=== PATIENT | female | born 1950 | race Caucasian/White ===

== ENCOUNTER → 2017-02-10 | Outpatient (CLI) | payer BC ==
[~2017-02-10] MED LIST: AMLO-110 PO
== END | disposition home or self-care (01) ==
LOC: C.RDSM 12:21
PROVIDERS: ATTEND Orthopaedic Surgery Sports Medicine
DX: M79.672 Pain in left foot (principal)

== ENCOUNTER → 2017-02-25 | Outpatient (CLI) | payer BC | END | disposition home or self-care (01) | LOC: C.RDSM 12:58 | PROVIDERS: ATTEND Orthopaedic Surgery Sports Medicine | DX: M79.672 Pain in left foot (principal) ==

== ENCOUNTER 2021-08-20 05:15 | Observation (INO) ==
--- NOTE | 2021-08-02 09:00 | PAT Medication Instructions ---
Medication Instructions Date of Service August 02, 2021 Home Medications amlodipine 5 mg tablet 5 mg PO QAM ibuprofen 200 mg tablet (Advil) 400 mg PO QAM lisinopril 20 mg tablet 20 mg PO QAM ASK your surgeon for instructions ibuprofen 200 mg tablet (Advil) 400 mg PO QAM DO NOT take the morning of surgery lisinopril 20 mg tablet 20 mg PO QAM Take morning of surgery With a small sip of water, OTHERWISE NOTHING TO EAT OR DRINK AFTER MIDNIGHT: amlodipine 5 mg tablet 5 mg PO QAM Other Notes If you have any questions please call us at [phone] or [phone] or [phone] or [phone]
--- NOTE | 2021-08-05 14:34 | Anesthesiology Consultation ---
Date of Service August 05, 2021 Assessment & Plan (1) Encounter for pre-operative examination: Chart Review Chart Review: Acceptable Risk for Surgery (pending PCP clearance (scheduled 08/02/21) and preop Covid testing results ) and Patient seen in Pre Admission Testing - Awaiting PCP clearance (done 08/02/21) Per PAT appt on 08/05/21, patient denies any recent travel or large group activities. No known Covid positive exposures or Covid related symptoms. No known Covid infection in the past 90 days. Pt is vaccinated for Covid. Preop Covid testing scheduled 08/16/21 = will await results. Educated on importance of self quarantining, social distancing and wearing mask in public for the patient one week prior to surgery and after Covid testing done Teaching & Discussion Pre-Anesthesia Teaching/Discussion Notes: Instructed NPO after midnight before surgery,except medications with 15 cc of water. Medication instructions provided according to the PAT guidelines. History Surgery Operation Date: 08/20/21 09:50 Proposed Procedures p Left Total Knee Arthroplasty - Vladimir Celine Vang MD Height/Weight Height: 5 ft 3 in Weight: 83.915 kg Allergies Allergy/AdvReac Type Severity Reaction Status Date / Time No Known Allergies Allergy Verified 08/01/21 12:15 Medications Home Medications Medication Instructions Recorded Confirmed Last Taken amlodipine 5 mg tablet 5 mg PO QAM 08/01/21 08/01/21 Unknown ibuprofen 200 mg tablet (Advil) 400 mg PO QAM 08/01/21 08/01/21 Unknown lisinopril 20 mg tablet 20 mg PO QAM 08/01/21 08/01/21 Unknown Past Medical History Medical History Hypertension Osteoarthritis Exercise / Class Metabolic Activity II 4-5 Yardwork/Stairs/Walk up hill (one flight of stairs - no chest pain or SOB ) Past Family History Family History Father Family history of reaction to anesthesia got sick after lung surgery Past Surgical History Surgical History History of left knee surgery cartilage repair History of repair of left rotator cuff History of tooth extraction History of wisdom tooth extraction Past Anesthesia History No Hx of Anesthesia Complications and No Family Hx of Anesthesia Complications (with exception to father- specifics unknown but denies MH or ps eudocholinesterase deficiency - no personal issues anesthesia ) History of PONV No Hx of PONV and No Hx of Motion Sickness Social History Smoking Status: Never smoker Do You Dip or Chew Tobacco: No Hx Alcohol Use: Yes Alcohol type: wine alcohol intake frequency: 0-2 drinks per day (2 glasses of wine/day ) Hx Substance Use: No substance use type: does not use Review of Systems Hx of snoring- no witnessed apnea- no hx of sleep study Patient denies chest pain, shortness of breath, dyspnea on exertion, reflux, cough, wheezing, palpitations. No hx of seizures, stroke, MA. No hx of blood clots or blood transfusions Physical Exam Vital Signs VITALS BP 132/75 P 75 TEMP 98.0 SP02 95% RESP 16 Constitutional no acute distress ENMT Mouth: + small oral opening; no TMJ clicking Thyromental Distance: < 3.5 Finger Breadths (3.0) Mallampati Class: III Crowns to molars Permanent implants to side teeth Neck + limited neck extension (mild ) Respiratory normal respiratory effort; no respiratory distress Auscultation: lungs clear to auscultation bilaterally; no wheezes Cardiovascular Rate/Rhythm: regular rate and regular rhythm Heart Sounds: no murmur Vessels: no carotid bruit Musculoskeletal Spine: no pain with cervical ROM Extremities: extremities normal to inspection Psychiatric Orientation: alert Lab Results Anesthesia Preop Results Results Anesthesia Widget: WBC 5.73 K/uL (4.8-10.8) 08/05/21 Hgb 14.2 g/dL (12.0-16.0) 08/05/21 Hct 42.3 % (37-47) 08/05/21 Plt 259 K/uL (130-400) 08/05/21 Na 139 mmol/L (136-145) 08/05/21 K 4.6 mmol/L (3.5-5.1) 08/05/21 Cl 104 mmol/L (98-107) 08/05/21 CO2 29 mmol/L (21-32) 08/05/21 BUN 22 mg/dl (6-23) 08/05/21 Creat 0.74 mg/dl (0.6-1.2) 08/05/21 Glucose Level 94 mg/dl (70-99(Fasting)) 08/05/21 PT 10.0 Seconds (9.0-12.0) 08/05/21 PTT 25.2 Seconds (21.0-31.0) 08/05/21 INR 0.9 (0.9-1.1) 08/05/21 Urine Color Yellow 08/05/21 Urine Appearance Clear (Clear) 08/05/21 Urine pH 6.0 (4.5-7.5) 08/05/21 Urine Specific Apex 1.019 (1.000-1.030) 08/05/21 Urine Protein Negative (Negative) 08/05/21 Urine Glucose (UA) Negative (Negative) 08/05/21 Urine Ketones Negative (Negative) 08/05/21 Urine Blood Negative (Negative) 08/05/21 Urine Nitrite Negative (Negative) 08/05/21 Urine Bilirubin Negative (Negative) 08/05/21 Urine Urobilinogen Negative (Negative) 08/05/21 Urine Leukocyte Esterase Negative (Negative) 08/05/21 Blood Type B Positive 08/05/21 Antibody Screen NEGATIVE 08/05/21 Testing Electrocardiogram Date: 08/05/21 Findings: + NSR @ (78bpm ) Normal EKG per cardio Chest X-Ray Date: 08/05/21 Findings: + NAD and + cardiomegaly (mild)
[2021-08-20] MEDS ORDERED: GABAPENTIN 300 MG CAP PO SCH (06:00)
[2021-08-20] MEDS ORDERED: LR 500ML BOLUS, THEN 15ML/HR IV SCH (06:00)
[2021-08-20] MEDS ORDERED: oxyCODONE HCL 10 MG TABCR (OxyCONTIN) PO SCH (06:00)
[2021-08-20] MEDS ORDERED: LR 60ML/HR IV SCH (06:00)
[2021-08-20] MEDS ORDERED: TRANEXAMIC ACID 1,000 MG **IV Pre-op IV SCH (06:00)
[2021-08-20] MEDS ORDERED: Scopolamine 1 MG TDSY TD SCH (06:00)
[2021-08-20] MEDS ORDERED: TRANEXAMIC ACID 1,000 MG **IV Intra-op IV SCH (06:00)
[2021-08-20] MEDS ORDERED: ROPIVACAINE 0.5% HCL/PF 150 MG, BUPIVACAINE 0.75% MPF 20 ML, EPINEPHrine 0.15 MG, Ketor... INFIL SCH (06:00)
[2021-08-20] MEDS ORDERED: ceFAZolin 2000MG 2,000 MG/15 ML SYR IV SCH (06:00)
[2021-08-20] MEDS ORDERED: ACETAMINOPHEN 500 MG TAB PO SCH (06:00)
[2021-08-20] MEDS ORDERED: ROPIVACAINE 0.5% 5 MG/ML 30 ML VIAL ONE (06:25)
[2021-08-20] MEDS ORDERED: EPINEPHrine INJ 1 MG/ML AMP ONE (06:25)
[2021-08-20] MEDS ORDERED: BUPIVACAINE 0.5 % 5 MG/1 ML PF 10ML VIAL ONE (06:25)
[2021-08-20] MEDS ORDERED: PROPOFOL IV EMULSION 10 MG/ML 20 ML VIAL IV ONE ×4 (06:36→09:35)
--- NOTE | 2021-08-20 06:37 | History & Physical Bridge Note ---
Date of Service August 20, 2021 History & Physical Bridge Note I have examined the patient, reviewed the History & Physical and in the interval since the performance of the History & Physical I have noted the following changes of clinical significance: no changes noted Patient is aware of the risks, is asymptomatic and tested negative for COVID-19.
[2021-08-20] MEDS ORDERED: fentaNYL citrate 100 MCG/2 ML VIAL ONE ×2 (06:39→09:21)
[2021-08-20] MEDS ORDERED: MIDAZOLAM HCL 1 MG/ML 2ML VIAL ONE (06:39)
[2021-08-20] MEDS ORDERED: ORTHO JOINT ANESTHETIC ONE (06:44)
[2021-08-20] MEDS ORDERED: PHENYLEPHRINE HCL 10 MG/ML VIAL ONE (07:44)
[2021-08-20] MEDS ORDERED: LIDOCAINE 2% 2 ML VIAL/AMP(20MG/ML) INFIL ONE (07:44)
[2021-08-20] MEDS ORDERED: ESMOLOL HCL INJ 10 MG/ML 10ML VIAL IV ONE (08:56)
[2021-08-20] MEDS ORDERED: KETAMINE 50 MG/5 ML SYRINGE ONE (09:00)
[2021-08-20] MEDS ORDERED: ATROPINE SULFATE 0.1 MG/ML 10ML SYR IV PRN (09:09)
[2021-08-20] MEDS ORDERED: ePHEDrine sulfate 50 MG/ML AMP IV PRN (09:09)
--- NOTE | 2021-08-20 10:04 | Post Operative Brief Note ---
Immediate Post Op Note v1 Date of Surgery August 20, 2021 Pre & Post Diagnosis Operation Date: 08/20/21 07:00 Pre-Op Diagnosis: Unilateral Osteoarthritis Left Knee Post-Op Diagnosis: Unilateral Osteoarthritis Left Knee I identified the patient and participated in the time-out.: Yes Procedure Operation Date: 08/20/21 07:00 Actual Procedures p Left Total Knee Arthroplasty(Left) - Vladimir Vang MD Surgeon Vladimir Vang MD Dandy Tender M KATERYNA ValenzuelaC (No fellow avail) Estimated Blood Loss 100 Findings Consistent with Post-Op Diagnosis Fluids 1600 cc Specimens Left knee contents Anesthesia Type MAC Spinal Regional Complications none
--- NOTE | 2021-08-20 10:04 | Operative Report ---
Post Operative Report Pre & Post Diagnosis Operation Date: 08/20/21 07:00 Pre-Op Diagnosis: Osteoarthritis Left Knee Post-Op Diagnosis: Osteoarthritis Left Knee I identified the patient and participated in the time-out.: Yes Procedure Operation Date: 08/20/21 07:00 Actual Procedures p Left Total Knee Arthroplasty, computer assisted(Left) - Vladimir Vang MD Surgeon Vladimir Vang MD Insecticide Mixer Dontae Valenzuela PA-C (No fellow avail) Estimated Blood Loss 100 Findings See Below Examined Under Anesthesia: ROM -- There was 10 degrees to 100 degrees of flexion Ligamentous examination -- revealed stable Justin, posterior drawer with 1-2 mm posterior translation, varus and valgus stress at 10 and 30 degrees. Outerbridge Type IV changes of Tri-compartments. Multiple large loose bodies. Marginal and intercondylar osteophytes. Large posterior Romero's cyst decompressed. Fluids 1600 cc Specimens left knee contents Anesthesia Type MAC Spinal Regional Complications none Indications This is a 70-year-old female who has clinical and radiographic findings consistent with osteoarthritis of the a left knee. I recommended that a left total knee replacement be performed. The patient understands the risks of surgery, which include but not limited to: bleeding, infection, re-operation, damage to nerves and arteries, continued knee pain, knee stiffness, DVT, and . The patient understands all of these instructions and explanations, all of his questions have been satisfactorily addressed and the patient has elected to proceed. Informed consent was signed. Description of Procedure IMPLANTS: 1. Femur: Triathlon #3 Left PS, with distal femoral pegs. 2. Tibia: Triathlon #4 Waller. 3. Insert: Triathlon #4 x 13 mm PS X3 poly. 4. Patella: Triathlon A35 x 10 mm X3 poly. 5. Simplex cement. Dontae Valenzuela PA-C is assisting with positioning, retracting, and closure due to fellow not available. Procedure: The patient was taken to the Operating Room and placed in the supine position after spinal and adductor canal nerve block was administered. My initials and a multidisciplinary time-out were used to identify the left leg as the correct operative limb. A tourniquet was placed high in the thigh. Prior to the incision, 2 grams of intravenous Ancef were given. The left leg was then prepped and draped in a standard sterile fashion. An Esmarch was used to exsanguinate the leg and the tourniquet was inflated to 250 mmHg. The planned mid-line 20 cm incision was created exposing the extensor mechanism. The medial parapatellar arthrotomy was made and the patella was everted. The patella was addressed first. It was prepared by reaming from 24 mm down to 14 mm. An A35 button was found to fit best. The peg holes were made in the standard fashion. The femur was addressed next and using computer assisted OrthoAlign with 3 degrees of flexion and 0 degrees of valgus, removing 10 mm in the standard fashion for the distal cut.The cut was made and the 4-in-1 cutting block for a size 3 femur was placed. These cuts and the cuts to place the box were made in the standard fashion. The distal peg were created after testing knee stability with trial components in and using the trial femur as a guide in the standard fashion. Our attention was then drawn to the tibia cut with again using computer assisted OrthoAlign, taking 9 mm from the lateral high side. There was sufficient extension and flexion gap to fit a 13 mm spacer. A #4 Tibial baseplate fit well. A trial with a 13 mm spacer showed excellent stability in both flexion and extension, with good ligament balance, and thumbs free patellar tracking. Range of motion of 0-120 degrees. The tibial baseplate was prepped for the keel and stem. All the trial components were tested again, with good stability and thumbs free tracking of the patella. All components were removed. The tourniquet was deflated. Hemostasis was obtained. 90 ml of total knee cocktail were injected into the soft tissues and periosteum. A bone plug was placed in the femur and covered with bone wax. After a 17 minute break, the limb was exsanguinated again and the tourniquet was re-inflated. All surfaces were copiously irrigated prior to placement of the components. The femoral component followed by Tibial baseplate were cemented in place and a 13mm trial placed. Next, the patellar button was placed using the same Simplex cement. Once the cement had cured, the range of motion and stability were unchanged. The 13 mm X3 poly was placed. Again the range of motion and stability were unchanged The extensor mechanism was closed with 1-0 and 0 Vicryl with the knee bent approximately 60 degrees in a standard fashion. The peritenon and deep fascia was closed with 2-0 Vicryl. The subcutaneous layer was closed with 3-0 Vicryl. The skin was closed with Zipline and shield. The limb was cleaned and dried. 4x4 dressing was placed over top followed by ABDs, sterile Webril, and a foot to thigh Syed bandage. The patient was then transferred to the Recovery Room in stable condition. The sponge and needle counts were correct. POST-OP INSTRUCTIONS: The patient will be WBAT. The patient will be admitted to the hospital. Labs will be obtained during the stay. DVT prophylaxis will included aspirin for 6 weeks, TEDs, and mechanical foot pumps. The dressing will be changed prior to their discharge or postop day #2 and covered with a Silverlon dressing, whichever comes first. I attest to the content of the Intraoperative Record and any orders documented therein. Any exceptions are noted below.
--- NOTE | 2021-08-20 10:16 | Operative Report ---
Post Operative Report Pre & Post Diagnosis Operation Date: 08/20/21 07:00 Pre-Op Diagnosis: Unilateral Osteoarthritis Left Knee Post-Op Diagnosis: Unilateral Osteoarthritis Left Knee I identified the patient and participated in the time-out.: Yes Procedure Operation Date: 08/20/21 07:00 Actual Procedures p Left Total Knee Arthroplasty(Left) - Vladimir Vang MD Surgeon Isadora Valenzuela PA-C College Sc[employer] Coordinator Dontae Valenzuela PA-C (No fellow avail) Estimated Blood Loss 100 Findings Consistent with Post-Op Diagnosis Specimens synovium left knee Description of Procedure Pt was taken to operating room, placed under general anesthesia with peripheral nerve block. Pt was given 2g Ancef IV. Prepped and draped in sterile fashion. I was present during the entire case and assisted with positioning, instrumentation, closure and dressings. Please see Dr. Vang's op report for further detail. Pt was awake and transferred to PACU in stable condition I attest to the content of the Intraoperative Record and any orders documented therein. Any exceptions are noted below.
[2021-08-20] MEDS ORDERED: HYDROmorphone INJ 0.5 MG/0.5 ML SYR IV PRN ×2 (10:17→10:28)
[2021-08-20] MEDS ORDERED: METOCLOPRAMIDE HCL INJ 5 MG/ML 2 ML VIAL IV PRN (10:17)
[2021-08-20] MEDS ORDERED: MAGNESIUM HYDROXIDE SUSP 30 ML UDC PO PRN (10:17)
[2021-08-20] MEDS ORDERED: NALOXONE HCL 0.4 MG/1 ML VIAL/CARP IV PRN (10:17)
[2021-08-20] MEDS ORDERED: bisacodyL 10 MG SUPP PR PRN (10:17)
[2021-08-20] MEDS ORDERED: ONDANSETRON INJ 2 MG/ML 2 ML VIAL IV PRN (10:17)
[2021-08-20] MEDS ORDERED: HYDROmorphone INJ 1 MG/ML SYRINGE ONE (10:33)
--- NOTE | 2021-08-20 11:44 | Anesthesiology Progress Note ---
Date of Service August 20, 2021 Anesthesia Post Procedure Vital Signs Vital Signs: Temp Pulse Pulse Resp BP Pulse Ox 08/20/21 11:25 36.9 C 72 14 100/59 L 96 08/20/21 11:15 36.9 C 78 15 109/75 92 08/20/21 11:05 36.9 C 96 H 14 119/73 95 08/20/21 10:55 96 H 16 105/75 95 08/20/21 10:45 97 H 19 105/74 92 08/20/21 10:35 101 H 16 121/77 95 08/20/21 10:25 95 H 19 107/71 95 08/20/21 10:16 36.1 C L 97 H 12 123/85 91 08/20/21 05:38 36.9 C 83 20 126/67 94 Pain Intensity Left Knee: Pain Intensity: 3 Transfer of Care Handoff Completed per policy Notes Mental Status: alert / awake / arousable Patient Amnestic to Procedure: Yes Nausea / Vomiting: adequately controlled Pain: adequately controlled Airway Patency, RR, SpO2: stable & adequate BP & HR: stable & adequate Hydration State: stable & adequate Neuraxial Anesthesia: was administered and sensory block is resolving Anesthetic Complications: no major complications apparent
--- NOTE | 2021-08-20 11:49 | XRay Report ---
XR knee LT 1 or 2V routine CLINICAL HISTORY: Surgical Post Op. Status post total knee replacement COMPARISON STUDY: 08/05/2021 TECHNIQUE: 2 left knee views FINDINGS: The patient is status post total knee replacement. The prosthetic components are in anatomi c alignment with no acute abnormality seen. Air is present within the soft tissues from the procedure . IMPRESSION: 1. Status post total knee replacement. ACT 112: Negative or not required by law. Electronically signed by: Reji Curiel M.D. 08/20/2021 11:48 AM
--- NOTE | 2021-08-20 12:10 | Hospitalist Consultation ---
Date of Consultation August 20, 2021 Assessment & Plan (1) S/P total knee arthroplasty: - POD #0. EBL 100cc. No complaints. - Defer pain management/DVT ppx/antibiotics/IVF/bowel regimen to primary team. - Patient has rescue Narcan ordered prn. - CBC and BMP in AM. (2) Hypertension: - Medications include amlodipine and lisinopril. Recommend restarting these tomorrow AM pending adequate renal function on AM BMP. - BP currently low-normotensive, no indication for prn antihypertensives. (3) Hyperlipidemia: - Per PCP records, no current medications prescribed for this. Supervising Physician Co-Signing Physician Notes Attending Attestation & Consult Note: Pt seen/examined, chart reviewed, care plan d/w HIRO Foster. I agree w/ the biggs components of her consult note. Pleasant 70yo female with HTN & Hyperlipidemia who presented today for elective L TKR. I saw her post-op on the orthopedic floor. c/o left knee pain, but denied chest pain, dyspnea or nausea/emesis. PMH/PSH/allergies/meds/sochx/famhx - reviewed VSS, afebrile gen - NAD, pleasant mouth - MMM neck - no JVD heart - RRR, s1 s2 lungs - CTA b/l abd - mildly distended, BS+, NT ext - left knee wrapped in dressings, mild edema left ankle; no edema right ankle; pulses 2 + b/l A/P: 1. s/p left TKR - pain control, fluids, dispo - per ortho 2. HTN - hold RENAY; cont amlodipine; f/u on labs in am 3. mild abdominal distension - serial exams; watch carefully for ileus; bowel regimen Reid Velez MD History of Present Illness Reason for Consultation: post-op medication management Requesting Physician: Vladimir Vang MD Attending Physician: Vladimir Vang MD History of Present Illness Rosibel Wood is a 70-year-old female with a past medical history of hypertension and hyperlipidemia who was admitted today for left TKA with Dr. Vang today, 08/20, after failing conservative treatment for her osteoarthritis. The hospitalist service was consulted for medication management. Today she is POD#0 doing well. Denies fever/chills, chest pain, palpitations, SOB, cough, abdominal pain, n/v, numbness/tingling, weakness, or pain. Allergies Allergy/AdvReac Type Severity Reaction Status Date / Time No Known Allergies Allergy Verified 08/20/21 05:37 Home Medications Medication Instructions Recorded Confirmed Type amlodipine 5 mg tablet 5 mg PO QAM 08/01/21 08/20/21 History ibuprofen 200 mg tablet (Advil) 400 mg PO QAM 08/01/21 08/20/21 History lisinopril 20 mg tablet 20 mg PO QAM 08/01/21 08/20/21 History Patient History Medical History (Updated 08/20/21 @ 16:49 by Vladimir Vang MD) Hyperlipidemia Per PCP records Hypertension Osteoarthritis Surgical History (Updated 08/20/21 @ 12:08 by Whit Foster PA-C) History of left knee surgery cartilage repair History of repair of left rotator cuff History of tooth extraction History of wisdom tooth extraction Family History Father Family history of reaction to anesthesia got sick after lung surgery Social History Smoking Status: Never smoker Second Hand Exposure: No; Do You Dip or Chew Tobacco: No; Tobacco Cessation Education Requested by Patient: No Hx Alcohol Use: Yes Alcohol type: wine Hx Substance Use: No Preferred Language: Italian Communication Ability: Effective Hydrator Operator Required: No Beliefs That Will Affect Care: None marital status: Single Current Living Situation: Alone Other Information That Helps Us Care for You: No Feels Safe at Home: Yes Safety Concerns: Feels Safe At This Time Assistive Devices: Walker Review of Systems Review of Systems: Constitutional: No fever/chills, weakness, fatigue, myalgias, anorexia, night sweats Eyes: No diplopia, no worsening or blurred vision ENT: normal hearing, no trouble swallowing Respiratory: No cough, sputum, dyspnea at rest or on exertion Cardiovascular: No chest pain, tightness or palpitations Abdomen: No pain, nausea, vomiting, diarrhea or constipation : Denies dysuria, hematuria, increased urgency/frequency, urinary retention Musculoskeletal: No joint pain, calf pain, swelling Neurologic: No weakness, numbness/tingling, or balance problems Psychiatric: No anxiety or depression Skin: No rash or itch Physical Exam Physical Exam: General: awake, alert, no apparent distress Head: Normocephalic, atraumatic ENT: PERRL, EOMI, no pharyngeal exudate, mucous membranes moist Chest: Clear to auscultation, on room air, no adventitious breath sounds Cardiac: Regular rate and rhythm, no murmur, no JVD, normal peripheral pulses, good capillary refill Abdominal: NABS x 4 quadrants, soft, nontender to palpation, no rebound, guarding or tenderness Extremities: Normal inspection, no peripheral edema or erythema, calfs nontender to palpation Psych: Normal mood and affect Neuro: AAO x 3, strength intact bilaterally and rated 5/5, no motor deficits, speech is clear, no peripheral sensory deficits Skin: no rash or erythema Results & Data Results & Data ([facility]) Vital Signs (Past 12 Hours) Vital Signs Temp Pulse Pulse Resp BP Pulse Ox 08/20/21 11:54 36.7 C 74 16 109/68 94 08/20/21 11:25 36.9 C 72 14 100/59 L 96 08/20/21 11:15 36.9 C 78 15 109/75 92 08/20/21 11:05 36.9 C 96 H 14 119/73 95 08/20/21 10:55 96 H 16 105/75 95 08/20/21 10:45 97 H 19 105/74 92 08/20/21 10:35 101 H 16 121/77 95 08/20/21 10:25 95 H 19 107/71 95 08/20/21 10:16 36.1 C L 97 H 12 123/85 91 08/20/21 05:38 36.9 C 83 20 126/67 94 Diagnostic Findings Knee X-Ray 08/20/21 10:24 XR knee LT 1 or 2V routine CLINICAL HISTORY: Surgical Post Op. Status post total knee replacement COMPARISON STUDY: 08/05/2021 TECHNIQUE: 2 left knee views FINDINGS: The patient is status post total knee replacement. The prosthetic components are in anatomic alignment with no acute abnormality seen. Air is present within the soft tissues from the procedure. IMPRESSION: 1. Status post total knee replacement. ACT 112: Negative or not required by law. Electronically signed by: Reji Curiel M.D. 08/20/2021 11:48 AM PG Care Time/CCT Total # of Minutes Spent Total Time Spent with Patient: Total time spent is greater than 50% in coordination of care (as documented) at patient's floor/unit and/or counseling patient: Coding Level of Care Code 16721 Inpt Consult Level 2 Diagnoses S/P total knee arthroplasty Z96.659 Hypertension I10 Hyperlipidemia E78.5
[2021-08-20] MEDS: SODIUM CHLORIDE 0.9% 1000ML 1,000 ML IV SCH ×2 (12:28→22:04)
[2021-08-20] MEDS: Scopolamine CHECK PATCH PLACEMENT SCH (14:58)
--- NOTE | 2021-08-20 16:50 | Orthopedic Progress Note ---
Date of Service August 20, 2021 Assessment & Plan (1) Osteoarthritis of left knee: Plan: POD #0 s/p L TKA, doing as well as expected. Resume diet. WBAT with walker. OOB to chair. Continue pain control. Check labs tomorrow. DVT prophylaxis: TEDs 3 weeks, foot pumps while in hospital, ASA 81 mg BID for 6 weeks. PT/OT. D/C planning. Present on Admission?: Yes Admission and Anticipated Discharge Date Admission Date: August 20, 2021 Subjective Doing fine, taking a nap. Review of Systems Review of Systems: All systems reviewed & are unremarkable except as noted in HPI & below Physical Exam Physical Exam: LLE: Dressing clean, dry, intact. Wiggling toes. Able to preform straight leg raise. Calf soft and non-tender. Results & Data ([facility]) Vital Signs (Past 12 Hours) Vital Signs Temp Pulse Pulse Resp BP Pulse Ox 08/20/21 14:50 36.9 C 70 121/69 94 08/20/21 14:00 36.6 C 60 15 134/85 97 08/20/21 12:50 37.0 C 84 16 125/54 L 93 08/20/21 12:20 36.6 C 72 16 127/69 93 08/20/21 11:54 36.7 C 74 16 109/68 94 08/20/21 11:25 36.9 C 72 14 100/59 L 96 08/20/21 11:15 36.9 C 78 15 109/75 92 08/20/21 11:05 36.9 C 96 H 14 119/73 95 08/20/21 10:55 96 H 16 105/75 95 08/20/21 10:45 97 H 19 105/74 92 08/20/21 10:35 101 H 16 121/77 95 08/20/21 10:25 95 H 19 107/71 95 08/20/21 10:16 36.1 C L 97 H 12 123/85 91 08/20/21 05:38 36.9 C 83 20 126/67 94 Diagnostic Findings Laboratory Results SARS-CoV-2, RNA, NAAT NEGATIVE (NEGATIVE) 08/20/21 05:29 Impressions Knee X-Ray 08/20/21 10:24 XR knee LT 1 or 2V routine CLINICAL HISTORY: Surgical Post Op. Status post total knee replacement COMPARISON STUDY: 08/05/2021 TECHNIQUE: 2 left knee views FINDINGS: The patient is status post total knee replacement. The prosthetic components are in anatomic alignment with no acute abnormality seen. Air is present within the soft tissues from the procedure. IMPRESSION: 1. Status post total knee replacement. ACT 112: Negative or not required by law. Electronically signed by: Reji Curiel M.D. 08/20/2021 11:48 AM
[2021-08-20] MEDS: FERROUS GLUCONATE 324 MG TAB PO SCH (17:40)
[2021-08-20] MEDS: ASCORBIC ACID 500 MG TAB PO SCH (17:40)
[2021-08-20] MEDS: HYDROmorphone INJ 1 MG/ML SYRINGE IV PRN (17:44)
[2021-08-20] MEDS: ceFAZolin 2000MG 2,000 MG/15 ML SYR IV SCH (17:55)
[2021-08-20] MEDS: SENNA 8.6 MG TAB PO SCH (20:40)
[2021-08-20] MEDS: DOCUSATE SODIUM 100 MG CAP PO SCH (20:40)
[2021-08-20] MEDS: oxyCODONE HCL IR 5 MG TAB (IMMEDIATE RELEASE) PO PRN (20:41)
[2021-08-21] MEDS: ceFAZolin 2000MG 2,000 MG/15 ML SYR IV SCH (00:52)
[2021-08-21] MEDS: Scopolamine CHECK PATCH PLACEMENT SCH ×2 (00:52→08:42)
[2021-08-21] MEDS: oxyCODONE HCL IR 5 MG TAB (IMMEDIATE RELEASE) PO PRN ×5 (03:30→20:50)
[2021-08-21 06:34] LABS: Hematocrit (blood only) 37.5 % (37-47); Hemoglobin 12.4 g/dL (12.0-16.0); Mean Corpuscular Hemoglobin 31.6 pg (25-34); Mean Corpuscular Hgb Conc 33.1 g/dL (32-36); Mean Corpuscular Volume 95.7 fL (80-100); Platelet Count 206 K/uL (130-400); RDW Coefficient of Variation 12.5 % (11.5-14.5); RDW Standard Deviation 43.1 fL (36.4-46.3); Red Blood Count 3.92 M/uL (4.2-5.4); White Blood Count 7.55 K/uL (4.8-10.8)
[2021-08-21 06:51] LABS: BUN Creatinine Ratio 19.3 (10-20); Calcium 8.7 mg/dl (8.5-10.1); Creatinine Clr Calc Pharmacy 63.8 ml/min; Est GFR (African American) 82.2 ml/min; Est GFR (Non-African American) 70.9 ml/min; Potassium 4.8 mmol/L (3.5-5.1)
[2021-08-21] MEDS: ASCORBIC ACID 500 MG TAB PO SCH ×2 (07:25→17:31)
[2021-08-21] MEDS: FERROUS GLUCONATE 324 MG TAB PO SCH ×2 (07:25→17:31)
[2021-08-21] MEDS: MULTIVITAMIN TAB PO SCH (07:26)
[2021-08-21] MEDS: lisinopril 20 MG TAB PO SCH (07:26)
[2021-08-21] MEDS: amLODIPine BESYLATE 5 MG TAB PO SCH (07:26)
[2021-08-21] MEDS: DOCUSATE SODIUM 100 MG CAP PO SCH ×2 (07:27→20:48)
[2021-08-21] MEDS: HYDROmorphone INJ 1 MG/ML SYRINGE IV PRN (09:28)
--- NOTE | 2021-08-21 09:46 | Orthopedic Progress Note ---
Date of Service August 21, 2021 Assessment & Plan (1) S/P total knee arthroplasty: Plan: POD1 s/p total knee arthroplasty WBAT with walker PT/OT Diet - regular Frequently ice and elevate with blankets stacked under ankle DVT prophylaxis: ASA 81mg BID x 6 weeks, TEDS x 3 weeks, foot pumps while in hospital Pain control: Tylenol 1000mg q 8hrs, oxycodone 5-10mg q4-6 hrs for moderate pain, Dilaudid 0.5mg IV for severe/breakthrough pain Vitamin C and Iron supplementation BID x 2 weeks Dressing: will change dressing tomorrow to Mepilex dressing that patient can leave in-tact until f/u Discharge home with home health x 2 weeks Follow up as scheduled with [facility] in 2 weeks Discharge likely tomorrow I, Dr. Vang, saw and examined the patient and discussed the management with my PA. I reviewed my PAs note and agree with the documented findings and the plan of care I developed. Patient still requiring IV pain medicine to control pain. Admission and Anticipated Discharge Date Admission Date: August 20, 2021 Subjective Pt was seen and examined bedside. POD #1 s/p total knee arthroplasty. Pt was admitted last night for observation. No major events over night. Vitals are stable. Labs unremarkable. X-rays show normal post operative changed. Pt reports they are doing well and pain is controlled. They are tolerating PO intake and voiding adequate amounts. Working well with PT/OT. Pt denies F/C, N/V/D, SOB, CP. Pt reports 9/10 pain. Physical Exam Physical Exam: General: Pt laying in hospital bed AA&O, in NAD, calm and cooperative during exam Lower Extremity: Dressing in tact and not saturated. Pt has full ROM of ankle and all 5 digits. Pt has 5/5 strength with resisted DF/PF. SLR in tact. Calf supple and non tender. NVI with sensation to light touch distally and good distal pulses present. Lower extremity noted to have good color and temperature with no signs of vascular or lymphatic insufficiency. Will change dressing after lunchtime Results & Data ([facility]) Vital Signs (Past 12 Hours) Vital Signs Temp Pulse Resp BP Pulse Ox 08/21/21 07:22 36.6 C 76 15 134/73 91 08/21/21 03:27 36.5 C 72 18 126/73 92 08/20/21 22:28 36.9 C 70 18 103/62 91 Laboratory Results 08/21/21 08/21/21 08/21/21 Range/Units 06:18 06:18 06:18 WBC 7.55 (4.8-10.8) K/uL RBC 3.92 L (4.2-5.4) M/uL Hgb 12.4 (12.0-16.0) g/dL Hct 37.5 (37-47) % MCV 95.7 (80-100) fL MCH 31.6 (25-34) pg MCHC 33.1 (32-36) g/dL RDW Std Deviation 43.1 (36.4-46.3) fL RDW Coeff of Celina 12.5 (11.5-14.5) % Plt Count 206 (130-400) K/uL MPV 9.0 (7.4-10.4) fL Sodium 135 L (136-145) mmol/L Potassium 4.8 (3.5-5.1) mmol/L Chloride 102 (98-107) mmol/L Carbon Dioxide 29 (21-32) mmol/L Anion Gap 4 (3-11) BUN 16 (6-23) mg/dl Creatinine 0.83 (0.6-1.2) mg/dl Est Cr Clr Drug Dosing 63.8 ml/min Est GFR ( Amer) 82.2 ml/min Est GFR (Non-Af Amer) 70.9 ml/min BUN/Creatinine Ratio 19.3 (10-20) Glucose 119 H (70-99(Fasting)) mg/dl Calcium 8.7 (8.5-10.1) mg/dl Hepatitis C Ab (EIA) Pending Hep C Ab Signal/Cutoff Pending
[2021-08-21] MEDS ORDERED: Nursing to Pharmacy Communication SCH (11:45)
--- NOTE | 2021-08-21 11:58 | Hospitalist Progress Note ---
Date of Service August 21, 2021 Assessment & Plan (1) S/P total knee arthroplasty: Plan: - Status post left total knee arthroplasty 08/20/21 - Defer pain management/DVT ppx/antibiotics/IVF/bowel regimen to primary team. Increased pain working with PT, but otherwise doing well. -Hemoglobin normal Creatinine normal (2) Hypertension: Plan: - Creatinine normal May continue amlodipine and lisinopril, hold for hypotension or creatinine elevation Aspirin DVT prophylaxis per primary team, 81 mg twice daily x6 weeks (3) Hyperlipidemia: Plan: - Per PCP records, no current medications prescribed for this. Outpatient follow-up Plan: Hemodynamically and clinically stable, doing well working with PT. Hemoglobin normal, creatinine remains at baseline. Adequate intake and output at this time. Continue pain control and DVT prophylaxis as noted above, and continue antihypertensives as noted above. May check BMP q. OD while inpatient, no additional recommendations at this time. Medicine will sign off, these reconsult if any questions, concerns, or clinical change. Okay for discharge from a medical standpoint. Admission and Anticipated Discharge Date Admission Date: August 20, 2021 Subjective Working with PT at time of visit. No overnight events, patient feels they are doing okay with no acute concerns. Does have increased pain working with PT, otherwise doing well denies lightheadedness/dizziness/syncope/chest pain/chest pressure/shortness of breath. Feels pain control is adequate on current regimen. Review of Systems Review of Systems: All systems reviewed & are unremarkable except as noted in Subjective Physical Exam Physical Exam: General: And oriented, cooperative, working with PT HEENT: Atraumatic, normocephalic. Vision and hearing grossly intact. Pulm: Symmetrical chest rise. No increase in work of breathing. No respiratory distress. Cardiac: Radial pulses intact and symmetrical. Abdominal: Nontender, nondistended, soft. BS present. Extremities: Walking with PT. No lower extremity edema. Postop dressing intact at left knee. Results & Data Results & Data ([facility]) Vital Signs (Past 12 Hours) Vital Signs Temp Pulse Pulse Resp BP Pulse Ox 08/21/21 11:39 36.7 C 72 20 110/64 93 08/21/21 07:22 36.6 C 76 15 134/73 91 08/21/21 03:27 36.5 C 72 18 126/73 92 PG Care Time/CCT Total # of Minutes Spent Total Time Spent with Patient: Total time spent is greater than 50% in coordination of care (as documented) at patient's floor/unit and/or counseling patient: Coding Level of Care Code 63104 Subseq Hosp Care Lvl 1 Diagnoses S/P total knee arthroplasty Z96.659 Hypertension I10 Hyperlipidemia E78.5
[2021-08-21] MEDS: ACETAMINOPHEN 500 MG TAB PO SCH ×2 (14:01→20:48)
[2021-08-21] MEDS: ASPIRIN 81 MG ECTAB PO SCH (20:47)
[2021-08-21] MEDS: SENNA 8.6 MG TAB PO SCH (20:48)
[2021-08-22] MEDS: oxyCODONE HCL IR 5 MG TAB (IMMEDIATE RELEASE) PO PRN ×2 (02:51→08:29)
[2021-08-22] MEDS: ACETAMINOPHEN 500 MG TAB PO SCH (05:49)
[2021-08-22] MEDS: DOCUSATE SODIUM 100 MG CAP PO SCH (08:22)
[2021-08-22] MEDS: ASPIRIN 81 MG ECTAB PO SCH (08:22)
[2021-08-22] MEDS: MULTIVITAMIN TAB PO SCH (08:23)
[2021-08-22] MEDS: ASCORBIC ACID 500 MG TAB PO SCH (08:23)
[2021-08-22] MEDS: amLODIPine BESYLATE 5 MG TAB PO SCH (08:24)
[2021-08-22] MEDS: lisinopril 20 MG TAB PO SCH (09:16)
[2021-08-22] MEDS: FERROUS GLUCONATE 324 MG TAB PO SCH (09:52)
--- NOTE | 2021-08-22 10:40 | Orthopedic Progress Note ---
Date of Service August 22, 2021 Assessment & Plan (1) S/P total knee arthroplasty: Plan: POD 2 s/p total knee arthroplasty WBAT with walker PT/OT Diet - regular Frequently ice and elevate with blankets stacked under ankle DVT prophylaxis: ASA 81mg BID x 6 weeks, TEDS x 3 weeks, foot pumps while in hospital Pain control: Tylenol 1000mg q 8hrs, oxycodone 5-10mg q4-6 hrs for moderate pain, Dilaudid 0.5mg IV for severe/breakthrough pain Vitamin C and Iron supplementation BID x 2 weeks Dressing: Silverlon dressing was applied today. Patient was advised to keep in place until her follow-up Discharge home with home health x 2 weeks Follow up as scheduled with [facility] in 2 weeks Discharge Later today I, Dr. Vang, saw and examined the patient and discussed the management with my PA. I reviewed my PAs note and agree with the documented findings and the plan of care I developed. Patient still requiring IV pain medicine to control pain. Admission and Anticipated Discharge Date Admission Date: August 20, 2021 Subjective This 70-year-old female is day 2 status post left total knee arthroplasty. Patient states she is doing very well. She is very anxious to be discharged from the hospital today. She states that her pain is well controlled with p.o. pain medication. She has done well with physical therapy and Occupational Therapy. Currently she denies any significant pain, chest pain, shortness of breath, fever, chills, sweats, lethargy, numbness or tingling in her left lower extremity, nausea, vomiting, diarrhea or difficulty voiding. Review of Systems Review of Systems: All systems reviewed & are unremarkable except as noted in Subjective Physical Exam Physical Exam: Left lower extremity: Outer dressing was removed. Zipper and shield are intact. There is no drainage noted. Patient does have some mild edema but no erythema, ecchymosis, warmth or palpable deformity. She is unable to perform an active straight leg raise test, however she can do an active assisted straight leg raise test without issue. She is able to actively dorsi and plantarflex her foot. Knee range of motion is from 0 degrees of extension to about 80 degrees of flexion. Quad strength is 3+ out of 5. Patient's calf soft supple nontender to palpation. Peripheral pulses 2+. Her capillary fill is less than 2 seconds. She is neurovascularly intact in left lower extremity. Results & Data ([facility]) Vital Signs (Past 12 Hours) Vital Signs Temp Pulse Resp BP Pulse Ox 08/22/21 09:15 106/65 08/22/21 08:21 81 131/72 08/22/21 07:23 37.1 C 74 18 123/71 91 08/21/21 22:49 36.4 C L 83 18 123/70 91 Diagnostic Findings Laboratory Results WBC 7.55 K/uL (4.8-10.8) 08/21/21 06:18 RBC 3.92 M/uL (4.2-5.4) L 08/21/21 06:18 Hgb 12.4 g/dL (12.0-16.0) 08/21/21 06:18 Hct 37.5 % (37-47) 08/21/21 06:18 MCV 95.7 fL (80-100) 08/21/21 06:18 MCH 31.6 pg (25-34) 08/21/21 06:18 MCHC 33.1 g/dL (32-36) 08/21/21 06:18 RDW Std Deviation 43.1 fL (36.4-46.3) 08/21/21 06:18 RDW Coeff of Celina 12.5 % (11.5-14.5) 08/21/21 06:18 Plt Count 206 K/uL (130-400) 08/21/21 06:18 MPV 9.0 fL (7.4-10.4) 08/21/21 06:18 Sodium 135 mmol/L (136-145) L 08/21/21 06:18 Potassium 4.8 mmol/L (3.5-5.1) 08/21/21 06:18 Chloride 102 mmol/L (98-107) 08/21/21 06:18 Carbon Dioxide 29 mmol/L (21-32) 08/21/21 06:18 Anion Gap 4 (3-11) 08/21/21 06:18 BUN 16 mg/dl (6-23) 08/21/21 06:18 Creatinine 0.83 mg/dl (0.6-1.2) 08/21/21 06:18 Est Cr Clr Drug Dosing 63.8 ml/min 08/21/21 06:18 Est GFR ( Amer) 82.2 ml/min 08/21/21 06:18 Est GFR (Non-Af Amer) 70.9 ml/min 08/21/21 06:18 BUN/Creatinine Ratio 19.3 (10-20) 08/21/21 06:18 Glucose 119 mg/dl (70-99(Fasting)) H 08/21/21 06:18 Calcium 8.7 mg/dl (8.5-10.1) 08/21/21 06:18 Hepatitis C Ab (EIA) NON-REACTIVE (NON-REACTIVE) 08/21/21 06:18 Hep C Ab Signal/Cutoff 0.01 (<1.00) 08/21/21 06:18 SARS-CoV-2, RNA, NAAT NEGATIVE (NEGATIVE) 08/20/21 05:29 Impressions Knee X-Ray 08/20/21 10:24 XR knee LT 1 or 2V routine CLINICAL HISTORY: Surgical Post Op. Status post total knee replacement COMPARISON STUDY: 08/05/2021 TECHNIQUE: 2 left knee views FINDINGS: The patient is status post total knee replacement. The prosthetic components are in anatomic alignment with no acute abnormality seen. Air is present within the soft tissues from the procedure. IMPRESSION: 1. Status post total knee replacement. ACT 112: Negative or not required by law. Electronically signed by: Reji Curiel M.D. 08/20/2021 11:48 AM
--- NOTE | 2021-08-22 13:59 | Discharge Summary ---
Date of Service August 22, 2021 Admission HPI Per Admitting Provider Pt was seen and examined bedside. POD #2 s/p total knee arthroplasty. Pt was admitted for two nights for observation and pain control. Vitals are stable. Labs unremarkable. X-rays show normal post operative changed. Pt reports they are doing well and pain is controlled. They are tolerating PO intake and voiding adequate amounts. Working well with PT/OT. Pt denies F/C, N/V/D, SOB, CP. Pt deemed medically stable and ready for discharge. Principal Diagnosis left knee osteoarthritis Discharge Exam General: Pt laying in hospital bed AA&O, in NAD, calm and cooperative during exam Lower Extremity: Dressing in tact and not saturated. Pt has full ROM of ankle and all 5 digits. Pt has 5/5 strength with resisted DF/PF. SLR in tact. Calf supple and non tender. NVI with sensation to light touch distally and good distal pulses present. Lower extremity noted to have good color and temperature with no signs of vascular or lymphatic insufficiency. Dressing taken down to reveal surgical incision that is well approximated with no signs of infection. Silverlon applied. Discharge Data Allergies Allergy/AdvReac Type Severity Reaction Status Date / Time No Known Allergies Allergy Verified 08/20/21 05:37 Consultations 08/16/21 14:04 Consult Hospitalist Routine 08/20/21 10:22 Consult Hospitalist Routine Procedures Performed Operation Date: 08/20/21 07:00 Actual Procedures p Left Total Knee Arthroplasty(Left) - Vladimir Vang MD Ordered Studies 08/20/21 05:00 US - OR guided needle placemen Routine Hospital Course (1) S/P total knee arthroplasty: POD 2 s/p total knee arthroplasty WBAT with walker PT/OT Diet - regular Frequently ice and elevate with blankets stacked under ankle DVT prophylaxis: ASA 81mg BID x 6 weeks, TEDS x 3 weeks, foot pumps while in hospital Pain control: Tylenol 1000mg q 8hrs, oxycodone 5-10mg q4-6 hrs for moderate pain, Dilaudid 0.5mg IV for severe/breakthrough pain Vitamin C and Iron supplementation BID x 2 weeks Dressing: Silverlon dressing was applied today. Patient was advised to keep in place until her follow-up Discharge today home with home health x 2 weeks Follow up as scheduled with [facility] in 2 weeks IDr. Vang, saw and examined the patient and discussed the management with my PA. I reviewed my PAs note and agree with the documented findings and the plan of care I developed. Patient still requiring IV pain medicine to control pain. Total Time Total Time Spent Total Time Spent (In Minutes): 40 minutes Discharge Plan Discharge Items Patient Disposition: Home - Home Health Services Reason For Visit: Unilateral Osteoarthritis Left Knee Discharge Diagnosis: Status post left total knee arthroplasty Activity: As commented below Lifting: None Bathing: Keep incision dry Bathing Comment: May shower tomorrow Sexual Activity: Wait until after follow-up appointment Exercise/Sports: Wait until after follow-up appointment Driving/Machine Use: No driving until cleared by payroll and benefits specialist Weightbearing: Left weightbearing Weightbearing Comment: As tolerated with walker assistance Non-emergency contact: Surgeon Call non-emergency contact if: you have any medication questions, your pain is not controlled, your temperature is above 101.5, your wound has increased drainage and your wound pain has increased Follow-up/Referrals: Tashi Orta MD [Primary Care Provider] - Diet: Regular Addtl Attending Provider Instructions: Post-operative Instructions Dear Patient and Family/Friends, Before you are discharged from the hospital, it is important to know what to expect when you get home after surgery. To that end, we have created this sheet of discharge instructions which covers many commonly asked questions. Make sure you go through this sheet in its entirety with your nurse before you are discharged. Please note that we will go over the specifics of your surgery and recovery when you return for your first post-operative visit. Medications 1. Oxycodone 5 mg: Take 1 to 2 tablets every 4-6 hours as needed for pain. A prescription will be sent to your pharmacy for this medication. 2. Aspirin 81 mg: Take 1 tablet twice daily for 6 weeks postoperatively for blood clot prevention. 3. Extra strength Tylenol 500 mg: Take 2 tablets every 6-8 hours as needed for additional pain control. Please purchase. 4. Vitamin C: Take 2 tablets daily for the first 2 weeks postoperatively. 5. Iron: Take 2 tablets daily for the first 2 weeks postoperatively Pain Expect to be in a fair amount of pain after surgery. Remember, our goal is not to eliminate your pain, but to make it tolerable. It is a good idea to stay ahead of your pain by taking the medications you were prescribed once you get home. Typically, the pain starts improving 3-7 days after surgery. You should start weaning off the narcotic pain medication (oxycodone, hydrocodone, hydromorphone, morphine) as soon as your pain improves. Please call our office if your pain is not adequately controlled. Ice Ice your operative site at least 5 times a day for 15-30 minutes at a time. Make sure you have a thin cloth between the ice or cooling unit and your skin to prev ent camacho bite. This is especially important if you received a nerve block. Continue icing your operative site for the first 5-7 days after surgery, then as needed. Diet/Nausea/Vomiting Start by drinking clear liquids and eating crackers. If you can tolerate this, then you may resume your normal diet. If you feel nauseated or vomit, take Zofran/ondansetron (if prescribed). Please call our office if you have intractable nausea or vomiting, or, if after hours, you may go to the Emergency Room for help. Constipation Constipation is a common side effect of narcotic pain medication. If you have not had a bowel movement within 2 days after surgery, we recommend purchasing an over the counter laxative such as Milk of Magnesia, Dulcolax, or Miralax from a local pharmacy, and taking it as instructed. Call our clinic if any questions. Nerve block The anesthesia team sometimes places a nerve block to help with post-operative pain control. This results in significant numbness and inability to move the extremity. The nerve block usually wears off in 8-12 hours, but sometimes can last up to 24 hours. Please call our office if you are still unable to move your extremity after 24 hours, unless you received a pain pump to take home. Nerve blocks typically wear off quickly, so start taking pain medication as soon as you start feeling soreness near your surgical site. Weight bearing and Range of Motion. Do not bear any weight through your operative extremity immediately after s urgery. If you had upper extremity surgery, do not lift anything with that arm. If you are in a knee brace, keep it locked in place until your follow-up. We will discuss your weight bearing, range of motion, and lifting restrictions in detail at your first post-operative appointment. Continuous Passive Motion (CPM) Machine If you were prescribed a CPM machine, it will start after your first post- operative appointment, at which time we will give you instructions on the range of motion settings and duration of treatment Physical therapy You will be given a prescription for physical therapy or occupational therapy at your first post-operative appointment. Typically, patients start therapy within 1 week of surgery Wound care and showering We will inspect your wound at your first post-operative visit, and may do a dressing change at that time. Most patients will be in a water-proof dressing that is removed 14 days after surgery. It is normal to see some dried blood on the dressing. Do not remove your dressing, paper strips or sutures yourself unless you are given permission. Showering is allowed the day after surgery. Do not scrub or remove any dressings. The wound should not be submerged underwater (i.e. in a bathtub or pool) until 4 weeks after surgery KEI stockings If you were given white stockings, these are to be worn at all times except to shower (on both legs) for the first 3 weeks after surgery. Return to Work Your return to work depends on what surgery was done and what type of work you do. Please bring any paperwork your employer needs completed to your first post-operative visit. Also, bring a description of your job duties, as this helps us to understand what risks you may face at work. Travel Avoid long distance travel (greater than 1 hour) in airplanes and cars for the first 6 weeks after surgery. If you must travel, you need to have a Doppler ultrasound done before you travel to rule out a blood clot in your legs. Follow-up You should have a follow-up appointment already after surgery. If not, please contact our office to make this appointment before you leave the hospital. When to call the office It is normal to have swelling and bruising in the limb that was operated on. This will improve with time. It is also normal to have fevers for the first 2 days after surgery. Reasons you should call your doctor include: Uncontrolled pain; Nausea, vomiting, or constipation that does not improve with medication; Fevers over 101.5, chills, sweats; Drainage or bleeding from the wound; Foul odor; Spreading areas of redness; Any other concerns Pending Studies at Discharge: No Stand-Alone Forms: My [employer], Smoking Cessation Medications and DC Order Prescriptions: New aspirin 81 mg Tablet,Delayed Release (Dr/Ec) 81 mg PO BID 42 Days Qty: 84 RF: 0 acetaminophen [Tylenol Extra Strength] 500 mg Tablet 1,000 mg PO Q6H 30 Days Qty: 240 RF: 0 ascorbic acid (vitamin C) [Vitamin C] 500 mg Tablet 500 mg PO BIDM 14 Days Qty: 28 RF: 0 ferrous gluconate 324 mg (38 mg iron) Tablet 324 mg PO BIDM 14 Days Qty: 28 RF: 0 oxycodone 5 mg tablet 5 mg PO Q4H Qty: 30 RF: 0 Continued lisinopril 20 mg Tablet 20 mg PO QAM RF: 0 amlodipine 5 mg Tablet 5 mg PO QAM RF: 0 ibuprofen [Advil] 200 mg Tablet 400 mg PO QAM RF: 0 Discharge Orders: Discharge Order (Routine); Ordered 08/22/21 Ordered By: Jake Monte/Other Patient Handouts: Knee Replacement Recovery at Home, Knee Replace Recovery Admission Data Admit Date/Time: 08/20/21 10:17 Attending Provider: Vladimir Vang Admit Provider: Vladimir Vang Primary Care Provider: Tashi Orta Other Providers: Reid Velez ; Cortez Hoffmann ; Danielle Zuñiga ; Maury Magdaleno ; Jonathan Black ; Isaac Nix ; Harinder Mosre ; Ashanti Stovall ; Ben Encarnacion ; Fransisca Mahmood ; Reji Zaragoza ; Josef Scott ; Whit Foster ; Kristine Velásquez ; Tanner Kelly ; Danielle Higuera ; Daniel Vaughn ; Yonathan Menard ; Tashi Orta ; Reid Delgadillo ; Margot Ward ; Gayathri Whalen ; Gunnar Sanchez ; Kimber Whittington ; Nirmal Harvey Kenneth A. ; Mirlande Wynn ; Yelena Glasgow ; Remy Herndon S. ; [facility] Other Interventions: Discharge Summary Assessment (RN) Last Done: 08/22/21 12:24
== END 2021-08-22 13:27 | disposition home health service (06) ==
LOC: ASU 05:15 → 3E 05:15